=== PATIENT | male | born 1935 | race Caucasian/White ===

== ENCOUNTER 2018-03-13 15:26 | Inpatient (IN) | payer MEDICARE, OTHER ==
[2018-03-13 16:36] LABS: ADD MAN DIFF? NO
[2018-03-13 16:42] LABS: BASOPHIL # 0.1 10^3/ul (0.0-0.1); BASOPHILS % 0.6 % (0.0-2.0); EOSINOPHILS # 0.3 10^3/ul (0.0-0.5); EOSINOPHILS % 2.9 % (0.0-7.0); HEMATOCRIT 38.5 % (42.0-52.0); LYMPHOCYTES # 1.7 10^3/ul (0.8-2.9); LYMPHOCYTES % 18.5 % (15.0-51.0); MEAN CORPUSCULAR HEMOGLOBIN 27.1 pg (29.0-33.0); MEAN CORPUSCULAR HGB CONC 31.2 g/dl (32.0-37.0); MEAN CORPUSCULAR VOLUME 86.9 fl (82.0-101.0); MEAN PLATELET VOLUME 11.2 fl (7.4-10.4); MONOCYTE # 0.7 10^3/ul (0.3-0.9); MONOCYTES % 7.4 % (0.0-11.0); NEUTROPHIL # 6.3 10^3/ul (1.6-7.5); NEUTROPHILS % 70.2 % (39.0-77.0); PLATELET COUNT 223 10^3/UL (140-415); RED BLOOD COUNT 4.43 10^6/ul (4.70-6.10)
[2018-03-13 16:42] LABS: WHITE BLOOD COUNT 8.9 10^3/ul (4.8-10.8)
[2018-03-13 17:01] LABS: ANION GAP 9 (5-13); BLOOD UREA NITROGEN 21 mg/dl (7-20); CALCIUM 9.9 mg/dl (8.4-10.2); CARBON DIOXIDE 31 mmol/L (21-31); CHLORIDE 103 mmol/L (97-110); CREATININE 0.94 mg/dl (0.61-1.24); GLUCOSE 124 mg/dl (70-220); POTASSIUM 4.4 mmol/L (3.5-5.1); SODIUM 143 mmol/L (135-144)
[2018-03-13 17:02] LABS: INR 0.89; PARTIAL THROMBOPLASTIN TIME 31.5 Sec (23.0-35.0); PROTIME 12.2 Sec (11.9-14.9)
[2018-03-13 17:13] LABS: TROPONIN-I < 0.012 ng/ml (0.000-0.120)
[2018-03-13] MEDS ORDERED: NACL 0.9% 3 ML SYG IV (19:00)
[2018-03-13] MEDS ORDERED: GLUCAGON 1 MG INJ IM (19:00)
[2018-03-13] MEDS ORDERED: GLUCOSE GEL 15 GRAM TUBE PO ×2 (19:00)
[2018-03-13] MEDS ORDERED: GLUCOSE GEL 15 GRAM TUBE BUCCAL (19:00)
[2018-03-13] MEDS ORDERED: HYDROCODONE/APAP (5/325) TAB PO (19:00)
[2018-03-13] MEDS ORDERED: DEXTROSE 50% 50 ML SYRINGE IV ×2 (19:00)
[2018-03-13] MEDS: INSULIN ASPART [NOVOLOG] 3 ML PEN SC (21:00)
[2018-03-13 21:46] LABS: CREATINE KINASE 36 IU/L (23-200)
[2018-03-13] MEDS: GABAPENTIN 100 MG CAP PO (21:57)
[2018-03-13] MEDS: ATORVASTATIN 20 MG TAB PO (21:57)
[2018-03-13 21:59] LABS: CK INDEX 3.1; CK-MB 1.13 ng/ml (0.0-2.4); TROPONIN-I < 0.012 ng/ml (0.000-0.120)
[2018-03-13] MEDS: INSULIN GLARGINE [LANTus] (100 UNITS/ML) SYG SC (22:47)
[2018-03-14 01:32] LABS: CREATINE KINASE 35 IU/L (23-200)
[2018-03-14 01:43] LABS: CK INDEX 2.6; CK-MB 0.92 ng/ml (0.0-2.4); TROPONIN-I < 0.012 ng/ml (0.000-0.120)
[2018-03-14 07:44] LABS: ADD MAN DIFF? NO
[2018-03-14 07:54] LABS: WHITE BLOOD COUNT 7.8 10^3/ul (4.8-10.8)
[2018-03-14 07:54] LABS: BASOPHIL # 0.1 10^3/ul (0.0-0.1); BASOPHILS % 0.6 % (0.0-2.0); EOSINOPHILS # 0.3 10^3/ul (0.0-0.5); EOSINOPHILS % 3.3 % (0.0-7.0); HEMATOCRIT 34.7 % (42.0-52.0); HEMOGLOBIN 11.2 g/dl (14.0-18.0); LYMPHOCYTES # 1.9 10^3/ul (0.8-2.9); MEAN CORPUSCULAR HEMOGLOBIN 27.5 pg (29.0-33.0); MEAN CORPUSCULAR HGB CONC 32.3 g/dl (32.0-37.0); MEAN CORPUSCULAR VOLUME 85.3 fl (82.0-101.0); MEAN PLATELET VOLUME 12.2 fl (7.4-10.4); MONOCYTE # 0.6 10^3/ul (0.3-0.9); MONOCYTES % 8.2 % (0.0-11.0); NEUTROPHILS % 63.5 % (39.0-77.0); PLATELET COUNT 210 10^3/UL (140-415); RED BLOOD COUNT 4.07 10^6/ul (4.70-6.10)
[2018-03-14 08:00] LABS: HEMOGLOBIN A1C 6.3 % (0-5.9)
[2018-03-14 08:07] LABS: ALANINE AMINOTRANSFERASE 30 IU/L (13-69); ALBUMIN 3.6 g/dl (3.3-4.9); ALKALINE PHOSPHATASE 53 IU/L (42-121); ANION GAP 7 (5-13); ASPARTATE AMINO TRANSFERASE 20 IU/L (15-46); BILIRUBIN,INDIRECT 0.2 mg/dl (0-1.1); BILIRUBIN,TOTAL 0.2 mg/dl (0.2-1.3); BLOOD UREA NITROGEN 18 mg/dl (7-20); CALCIUM 9.5 mg/dl (8.4-10.2); CARBON DIOXIDE 30 mmol/L (21-31); CHLORIDE 104 mmol/L (97-110); CREATININE 0.81 mg/dl (0.61-1.24); GLUCOSE 154 mg/dl (70-220); SODIUM 141 mmol/L (135-144)
[2018-03-14 08:08] LABS: POTASSIUM 3.8 mmol/L (3.5-5.1)
[2018-03-14] MEDS: ASPIRIN (EC) 81 MG TAB PO (08:19)
[2018-03-14] MEDS: ENOXAPARIN 30 MG/0.3 ML SYG SC (08:20)
[2018-03-14] MEDS: INSULIN ASPART [NOVOLOG] 3 ML PEN SC ×4 (08:20→12:08)
== END 2018-03-14 14:41 | disposition home or self-care (01) | DRG 312 ==
LOC: E/R 15:26 → TEL 17:46
DX: R55 Syncope and collapse (principal); I49.8 Other specified cardiac arrhythmias; D64.9 Anemia, unspecified; R00.1 Bradycardia, unspecified; E11.9 Type 2 diabetes mellitus without complications; I10 Essential (primary) hypertension; E78.5 Hyperlipidemia, unspecified; F03.90 Unspecified dementia, unspecified severity, without behavioral disturbance, psychotic disturbance, mood disturbance, and anxiety; I44.0 Atrioventricular block, first degree
CPT/HCPCS: 36415; 70450; 71045; 80048; 80053; 82550; 82553; 82962; 83036; 84484; 85025; 85610; 85730; 93005; 93306; 99285-25

== ENCOUNTER 2018-08-15 05:15 | Observation (INO) | payer MEDICARE, OTHER ==
[2018-08-15] MEDS: SOD CHLORIDE 0.9% 1,000 ML IV (06:44)
[2018-08-15 06:57] LABS: ALANINE AMINOTRANSFERASE 25 IU/L (13-69); ALBUMIN 3.8 g/dl (3.3-4.9); ALKALINE PHOSPHATASE 46 IU/L (42-121); ANION GAP 8 (5-13); ASPARTATE AMINO TRANSFERASE 18 IU/L (15-46); BILIRUBIN,INDIRECT 0.3 mg/dl (0-1.1); BILIRUBIN,TOTAL 0.3 mg/dl (0.2-1.3); CALCIUM 9.4 mg/dl (8.4-10.2); CARBON DIOXIDE 26 mmol/L (21-31); CHLORIDE 108 mmol/L (97-110); CREATININE 0.91 mg/dl (0.61-1.24); GLUCOSE 181 mg/dl (70-220); POTASSIUM 4.1 mmol/L (3.5-5.1); SODIUM 142 mmol/L (135-144); TOTAL PROTEIN 6.5 g/dl (6.1-8.1)
[2018-08-15] MEDS ORDERED: CEFAZOLIN 1 GM INJ ×2 (06:58→10:12)
[2018-08-15] MEDS ORDERED: ROCURONIUM 50 MG INJ (06:58)
[2018-08-15] MEDS ORDERED: PROPOFOL 0 ML (06:58)
[2018-08-15] MEDS ORDERED: DIPHENHYDRAMINE 25 MG CAP PO (07:00)
[2018-08-15] MEDS ORDERED: HYDROCODONE/APAP (10/325) TAB PO ×2 (07:00)
[2018-08-15] MEDS ORDERED: DIPHENHYDRAMINE 50 MG INJ IV ×2 (07:00→09:30)
[2018-08-15] MEDS ORDERED: NALOXONE (0.4 MG/ML) INJ IV (07:00)
[2018-08-15] MEDS ORDERED: CEPASTAT LOZENGE MT (07:00)
[2018-08-15] MEDS ORDERED: BISACODYL 10 MG SUPP PR (07:00)
[2018-08-15] MEDS ORDERED: HYDROmorphONE 0.5 MG/0.5 ML SYG IV (07:00)
[2018-08-15] MEDS ORDERED: SEVOFLURANE 15 MIN (07:00)
[2018-08-15] MEDS ORDERED: CYCLOBENZAPRINE 10 MG TAB PO (07:00)
[2018-08-15] MEDS ORDERED: DEXAMETHASONE 4 MG/ML 5 ML INJ (07:01)
[2018-08-15] MEDS ORDERED: METOCLOPRAMIDE 10 MG INJ (07:01)
[2018-08-15] MEDS ORDERED: ONDANSETRON 4 MG INJ (07:01)
[2018-08-15 07:08] LABS: BLOOD UREA NITROGEN 23 mg/dl (7-20)
[2018-08-15] MEDS: CEFAZOLIN 1 GM/50 ML (PMX) 50 ML IVPB ×3 (07:20→22:11)
[2018-08-15] MEDS: BUPIVACAINE 0.25%/EPI (SDV) 30 ML INJ (07:40)
[2018-08-15] MEDS: THROMBIN 5000 UNIT VIAL (07:40)
[2018-08-15] MEDS: POLYMYXIN/BACITRACIN 1L IRRIG (08:09)
[2018-08-15] MEDS: GELATIN SIZE 100 SPONGE (08:09)
[2018-08-15] MEDS ORDERED: SUGAMMADEX SODIUM 200 MG/2 ML VIAL IV (09:08)
[2018-08-15] MEDS ORDERED: HYDROmorphONE 1 MG/5 ML IV SYRINGE IV ×3 (09:30)
[2018-08-15] MEDS ORDERED: FENTAnyl 50 MCG/ML VIAL IV ×3 (09:30)
[2018-08-15] MEDS ORDERED: LABETALOL HCL 20MG INJ IV (09:30)
[2018-08-15] MEDS ORDERED: EPHEDrine 25 MG/5 ML SYG IV (09:30)
[2018-08-15] MEDS ORDERED: MEPERIDINE 25 MG INJ IV (09:30)
[2018-08-15] MEDS ORDERED: hydrALAzine 20 MG INJ IV (09:30)
[2018-08-15] MEDS ORDERED: METOCLOPRAMIDE 10 MG INJ IV (09:30)
[2018-08-15] MEDS ORDERED: OXYCODONE/ACETAMINOPHEN (5/325) TAB PO (09:30)
[2018-08-15] MEDS ORDERED: BUPIVACAINE 0.25% (MPF) 30 ML INJ (09:45)
[2018-08-15] MEDS: MINERAL OIL LIGHT 10 ML VIAL (09:55)
[2018-08-15] MEDS: BUPIVACAINE 0.25% (MPF) 30 ML INJ ZFS (09:56)
[2018-08-15] MEDS: THROMBIN 5000 UNIT VIAL ZFS (09:56)
[2018-08-15] MEDS: FENTAnyl 50 MCG/ML VIAL (09:59)
[2018-08-15] MEDS ORDERED: EPHEDrine 25 MG/5 ML SYG (10:08)
[2018-08-15] MEDS ORDERED: hydrALAzine 20 MG INJ (10:20)
[2018-08-15] MEDS: HYDROmorphONE 0.2 MG/ML PCA IV (10:49)
[2018-08-15] MEDS: ONDANSETRON 4 MG INJ IV ×2 (11:50→16:35)
[2018-08-15] MEDS: METOPROLOL (XL) 25 MG TAB PO (12:00)
[2018-08-15] MEDS: 1/2 NS + KCL 20 MEQ 1,000 ML IV ×3 (12:11→22:11)
[2018-08-15] MEDS ORDERED: GLUCOSE GEL 15 GRAM TUBE PO ×2 (12:30)
[2018-08-15] MEDS ORDERED: GLUCAGON 1 MG INJ IM (12:30)
[2018-08-15] MEDS ORDERED: DEXTROSE 50% 50 ML SYRINGE IV ×2 (12:30)
[2018-08-15] MEDS ORDERED: GLUCOSE GEL 15 GRAM TUBE BUCCAL (12:30)
[2018-08-15] MEDS ORDERED: ETOMIDATE 20 MG INJ (12:52)
[2018-08-15] MEDS: INSULIN ASPART [NOVOLOG] 3 ML PEN SC ×3 (13:46→20:51)
[2018-08-15] MEDS: metFORMIN 500 MG TAB PO (17:22)
[2018-08-15] MEDS: DOCUSATE SODIUM 100 MG CAP PO (20:47)
[2018-08-15] MEDS: ATORVASTATIN 20 MG TAB PO (20:48)
[2018-08-15] MEDS: BENAZEPRIL 20 MG TAB PO (20:48)
[2018-08-15] MEDS: GABAPENTIN 100 MG CAP PO (20:49)
[2018-08-15] MEDS ORDERED: BROMFENAC SODIUM XX (21:00)
[2018-08-16] MEDS: ACCU-CHEK XX ×2 (01:17→21:22)
[2018-08-16 05:24] LABS: ADD MAN DIFF? NO
[2018-08-16 05:27] LABS: BASOPHILS % 0.2 % (0.0-2.0); EOSINOPHILS % 0.2 % (0.0-7.0); HEMATOCRIT 31.9 % (42.0-52.0); LYMPHOCYTES # 1.4 10^3/ul (0.8-2.9); LYMPHOCYTES % 11.2 % (15.0-51.0); MEAN CORPUSCULAR HGB CONC 31.3 g/dl (32.0-37.0); MEAN PLATELET VOLUME 12.4 fl (7.4-10.4); MONOCYTE # 0.9 10^3/ul (0.3-0.9); MONOCYTES % 7.1 % (0.0-11.0); NEUTROPHIL # 9.8 10^3/ul (1.6-7.5); NEUTROPHILS % 80.7 % (39.0-77.0); PLATELET COUNT 209 10^3/UL (140-415); RED BLOOD COUNT 3.71 10^6/ul (4.70-6.10); RED CELL DISTRIBUTION WIDTH 14.7 % (11.5-14.5)
[2018-08-16 05:27] LABS: WHITE BLOOD COUNT 12.1 10^3/ul (4.8-10.8)
[2018-08-16] MEDS: SOD CHLORIDE 0.9% 1,000 ML IV ×3 (05:54→23:35)
[2018-08-16 05:59] LABS: ANION GAP 6 (5-13); BLOOD UREA NITROGEN 20 mg/dl (7-20); CARBON DIOXIDE 27 mmol/L (21-31); CHLORIDE 106 mmol/L (97-110); CREATININE 0.87 mg/dl (0.61-1.24); GLUCOSE 245 mg/dl (70-220); MAGNESIUM 1.6 mg/dl (1.7-2.5); POTASSIUM 4.6 mmol/L (3.5-5.1); SODIUM 139 mmol/L (135-144)
[2018-08-16 06:26] LABS: PHOSPHORUS 3.7 mg/dl (2.5-4.9)
[2018-08-16] MEDS: ONDANSETRON 4 MG INJ IV (07:18)
[2018-08-16] MEDS ORDERED: PANTOPRAZOLE 40 MG INJ IV (09:00)
[2018-08-16] MEDS ORDERED: UBIDECARENONE 200 MG PO (09:00)
[2018-08-16] MEDS: metFORMIN 500 MG TAB PO ×2 (09:09→17:57)
[2018-08-16] MEDS: GABAPENTIN 100 MG CAP PO ×2 (09:10→21:11)
[2018-08-16] MEDS: DOCUSATE SODIUM 100 MG CAP PO ×2 (09:10→21:00)
[2018-08-16] MEDS: METOCLOPRAMIDE 10 MG INJ IV ×3 (09:10→20:30)
[2018-08-16] MEDS: BENAZEPRIL 20 MG TAB PO ×2 (09:11→21:12)
[2018-08-16] MEDS: METOPROLOL (XL) 25 MG TAB PO (09:11)
[2018-08-16] MEDS: PANTOPRAZOLE (EC) 40 MG TAB PO ×2 (09:20→17:56)
[2018-08-16] MEDS: INSULIN ASPART [NOVOLOG] 3 ML PEN SC ×4 (09:21→21:00)
[2018-08-16] MEDS: MAGNESIUM SULFATE 3 GM in DEXTROSE 5% 100 ML IVPB (10:10)
[2018-08-16] MEDS: AL HYDROX/MG HYDROX/SIMETH 30 ML CUP PO (14:23)
[2018-08-16] MEDS: ATORVASTATIN 20 MG TAB PO (21:00)
[2018-08-17] MEDS ORDERED: ACCU-CHEK XX (02:00)
[2018-08-17] MEDS: METOCLOPRAMIDE 10 MG INJ IV (02:30)
[2018-08-17 05:17] LABS: ADD MAN DIFF? NO
[2018-08-17 05:24] LABS: WHITE BLOOD COUNT 10.2 10^3/ul (4.8-10.8)
[2018-08-17 05:24] LABS: BASOPHILS % 0.2 % (0.0-2.0); EOSINOPHILS # 0.1 10^3/ul (0.0-0.5); EOSINOPHILS % 0.6 % (0.0-7.0); HEMATOCRIT 29.6 % (42.0-52.0); HEMOGLOBIN 9.4 g/dl (14.0-18.0); LYMPHOCYTES # 1.4 10^3/ul (0.8-2.9); LYMPHOCYTES % 13.9 % (15.0-51.0); MEAN CORPUSCULAR HEMOGLOBIN 27.4 pg (29.0-33.0); MEAN CORPUSCULAR HGB CONC 31.8 g/dl (32.0-37.0); MEAN CORPUSCULAR VOLUME 86.3 fl (82.0-101.0); MEAN PLATELET VOLUME 12.4 fl (7.4-10.4); NEUTROPHIL # 7.6 10^3/ul (1.6-7.5); NEUTROPHILS % 74.7 % (39.0-77.0); PLATELET COUNT 157 10^3/UL (140-415); RED BLOOD COUNT 3.43 10^6/ul (4.70-6.10); RED CELL DISTRIBUTION WIDTH 14.8 % (11.5-14.5)
[2018-08-17 05:48] LABS: ANION GAP 6 (5-13); BLOOD UREA NITROGEN 16 mg/dl (7-20); CALCIUM 8.7 mg/dl (8.4-10.2); CARBON DIOXIDE 26 mmol/L (21-31); CHLORIDE 106 mmol/L (97-110); GLUCOSE 183 mg/dl (70-220); MAGNESIUM 1.9 mg/dl (1.7-2.5); POTASSIUM 4.2 mmol/L (3.5-5.1); SODIUM 138 mmol/L (135-144)
[2018-08-17 05:53] LABS: PHOSPHORUS 2.6 mg/dl (2.5-4.9)
[2018-08-17] MEDS: PANTOPRAZOLE (EC) 40 MG TAB PO (06:24)
[2018-08-17] MEDS: INSULIN ASPART [NOVOLOG] 3 ML PEN SC ×3 (09:08→17:49)
[2018-08-17] MEDS: GABAPENTIN 100 MG CAP PO (09:10)
[2018-08-17] MEDS: BENAZEPRIL 20 MG TAB PO (09:10)
[2018-08-17] MEDS: INSULIN GLARGINE [LANTus] (100 UNITS/ML) SYG SC (09:10)
[2018-08-17] MEDS: METOPROLOL (XL) 25 MG TAB PO (09:11)
[2018-08-17] MEDS: metFORMIN 500 MG TAB PO ×2 (09:14→17:48)
[2018-08-17] MEDS: DOCUSATE SODIUM 100 MG CAP PO (09:14)
[2018-08-17 09:20] LABS: ADD UMIC YES; UR ASCORBIC ACID NEGATIVE (NEGATIVE); UR BACTERIA FEW /HPF (NONE SEEN); UR BILIRUBIN (Dip) NEGATIVE (NEGATIVE); UR BLOOD (Dip) 2+ mg/dL (NEGATIVE); UR CLARITY CLEAR (CLEAR); UR COLOR STRAW (YELLOW); UR GLUCOSE (Dip) 1+ mg/dL (NEGATIVE); UR KETONES (Dip) 1+ mg/dL (NEGATIVE); UR LEUKOCYTE ESTERASE (Dip) NEGATIVE Leu/ul (NEGATIVE); UR MUCUS FEW /HPF (NONE SEEN); UR NITRITE (Dip) NEGATIVE (NEGATIVE); UR RBC 6 /HPF (0-5); UR SPECIFIC GRAVITY (Dip) 1.014 (1.003-1.030); UR TOTAL PROTEIN (Dip) NEGATIVE (NEGATIVE); UR UROBILINOGEN (Dip) NEGATIVE (NEGATIVE); UR WBC 1 /HPF (0-5)
[2018-08-17] MEDS: HYDROCODONE/APAP (10/325) TAB PO (10:33)
[2018-08-17] MEDS: BALSAM PERU/CASTOR OIL 60 GM TUBE TOP (13:22)
[2018-08-17] MEDS: ACETAMINOPHEN 325 MG TAB PO (17:54)
== END 2018-08-17 20:09 | disposition home or self-care (01) ==
LOC: REC 05:15 → MS1 11:56
PROVIDERS: Specialist
DX: M51.36 Other intervertebral disc degeneration, lumbar region (principal); M48.062 Spinal stenosis, lumbar region with neurogenic claudication; E11.9 Type 2 diabetes mellitus without complications; I10 Essential (primary) hypertension; E78.5 Hyperlipidemia, unspecified; I25.10 Atherosclerotic heart disease of native coronary artery without angina pectoris; Z95.1 Presence of aortocoronary bypass graft; Z79.4 Long term (current) use of insulin; Z79.82 Long term (current) use of aspirin
CPT/HCPCS: 63047; 72020; 80048; 80053; 81001; 82962; 83735; 84100; 85025; 86999; 87086; 88304; 88311; 97116; 97161; 97530; 99217